=== PATIENT | female | born 1995 | race Caucasian/White ===

== ENCOUNTER 2022-07-07 12:59 | Emergency (ER) | payer MEDICAID ==
[~2022-07-07] VITALS: Ht 157.5 cm; Wt 66.3 kg
[2022-07-07 13:08] VITALS: BP 109/58
--- NOTE | 2022-07-07 13:24 | NUR ---
PT AMBULATED TO ER BED 6
--- NOTE | 2022-07-07 13:56 | NUR ---
LAB AT BEDSIDE.
[2022-07-07 14:20] LABS: APPEARANCE,URINE SL CLOUDY (CLEAR); BILIRUBIN,URINE NEGATIVE (NEGATIVE); BLOOD, URINE NEGATIVE (NEGATIVE); COLOR,URINE YELLOW (YELLOW); LEUKOCYTE ESTERASE ,URINE 2+ (NEGATIVE); NITRITE, URINE NEGATIVE (NEGATIVE); PH,URINE 6.5 (5.0-9.0); UGLUCOSE NEGATIVE (NEGATIVE)
[2022-07-07 14:26] LABS: BASOPHILS # (AUTO) 0.1 K/uL (0.00-0.22); EOSINOPHILS # (AUTO) 0.1 K/uL (0-0.4); EOSINOPHILS % (AUTO) 0.7 % (0.0-4.0); HEMATOCRIT 33.8 % (36-48); HEMOGLOBIN 11.5 g/dL (12.0-16.0); LYMPHOCYTES # (AUTO) 1.4 K/uL (2.5-16.5); LYMPHOCYTES % (AUTO) 14.9 % (20.5-51.1); MEAN CORPUSCULAR HEMOGLOBIN 30 pg (27-31); MEAN CORPUSCULAR HGB CONC 34 g/dL (33-37); MEAN CORPUSCULAR VOLUME 87.9 fL (80-94); MONOCYTES # (AUTO) 0.4 K/uL (0.8-1.0); MONOCYTES % (AUTO) 4.6 % (1.7-9.3); NEUTROPHILS # (AUTO) 7.3 K/uL (1.8-7.7); NEUTROPHILS % (AUTO) 78.8 % (42.2-75.2); PLATELET COUNT (AUTO) 218 K/uL (140-450); RED BLOOD CELL COUNT(AUTO) 3.84 MIL/uL (4.20-5.40); WHITE BLOOD COUNT (AUTO) 9.3 K/uL (4.8-10.8)
[2022-07-07 14:40] LABS: ALBUMIN 3.2 g/dL (3.4-5.0); CREATININE 0.4 mg/dL (0.6-1.3); TOTAL BILIRUBIN 0.2 mg/dL (0.0-1.0)
--- NOTE | 2022-07-07 14:40 | NUR ---
DR. COBIAN EVALUATING PATIENT AT BEDSIDE.
[2022-07-07 14:44] LABS: CALCIUM OXALATE CRYSTALS,UR 0-10 /HPF (None Seen); RBC,URINE 0-5 /HPF (0-5)
[2022-07-07 14:45] LABS: OTHER CASTS, URINE None Seen /LPF (None Seen)
[2022-07-07] MEDS ORDERED: cephALEXin 500 MG CAP PO ONE (15:10)
--- NOTE | 2022-07-07 16:12 | NUR ---
ULTRASOUND AT BEDSIDE.
--- NOTE | 2022-07-07 16:50 | NUR ---
26 y/o female c/o fainting at work. Patient does not remember incident, all she remembers is her vision getting fuzzy. Per witnesses, they said she did not hit her head but went slowly to the ground. Patient is currently . A&OX4, SKIN INTACT, VITALS WNL, AND STEADY GAIT. Medical History: Denies NKA
[2022-07-07] MEDS ORDERED: CEPH-588 PO (17:34)
[2022-07-07 17:50] VITALS: BP 103/60
--- NOTE | 2022-07-07 17:50 | NUR ---
Patient discharged with v/s stable. Written and verbal after care instructions given. Patient alert, oriented and verbalized understanding of instructions. Ambulatory with steady gait. All questions addressed prior to discharge. ID band removed. Patient advised to follow up with PMD. Rx of KEFLEX given. Opportunity to ask questions provided and answered. WORK NOTE HANDED TO PATIENT.
--- NOTE | 2022-07-07 17:51 | NUR ---
The patient's care was reviewed and supervised by Viviane Schulte RN.
== END 2022-07-07 17:50 | disposition home or self-care (01) ==
LOC: MED 12:59
DX: O26.892 Other specified pregnancy related conditions, second trimester (principal); Z3A.16 16 weeks gestation of pregnancy
CPT/HCPCS: 36415; 76805; 80053; 81001; 85025; 87086; 93005; 99285; Q0092

== ENCOUNTER 2022-09-21 22:40 | Emergency (ER) | payer MEDICAID ==
[~2022-09-21] VITALS: Ht 157.5 cm; Wt 68.5 kg
[~2022-09-21 22:40] MED LIST: CEPH-588 PO
[2022-09-21 23:03] VITALS: BP 100/57
--- NOTE | 2022-09-21 23:03 | NUR ---
to bed ambulatory
[2022-09-22] MEDS ORDERED: HYDROcodone/APAP 5/325 MG 1 TAB TAB PO ONE (00:45)
[2022-09-22] MEDS ORDERED: ALBUTEROL 0.083% 2.5 MG/3 ML NEBU INH ONE (00:45)
[2022-09-22 01:00] LABS: APPEARANCE,URINE SL CLOUDY (CLEAR); BILIRUBIN,URINE NEGATIVE (NEGATIVE); BLOOD, URINE TRACE-I (NEGATIVE); COLOR,URINE YELLOW (YELLOW); LEUKOCYTE ESTERASE ,URINE 3+ (NEGATIVE); NITRITE, URINE NEGATIVE (NEGATIVE); UGLUCOSE NEGATIVE (NEGATIVE)
--- NOTE | 2022-09-22 01:06 | NUR ---
SWABBED SENT TO LAB AND RECEIVED BY OSWALDO LUMBER PILER OPERATOR
[2022-09-22 01:19] LABS: RBC,URINE 0-5 /HPF (0-5); WBC,URINE 60-80 /HPF (0-5)
[2022-09-22 01:52] LABS: RSV POSITIVE (NEGATIVE)
[2022-09-22] MEDS ORDERED: ACET-8386 PO (02:18)
[2022-09-22] MEDS ORDERED: NITR100C7 PO (02:18)
[2022-09-22] MEDS ORDERED: LORA10TA19 PO (02:20)
[2022-09-22 02:30] VITALS: BP 100/57
--- NOTE | 2022-09-22 02:30 | NUR ---
Patient discharged. Written and verbal after care instructions given and explained. Patient alert, oriented and verbalized understanding of instructions. Ambulatory with steady gait. All questions addressed prior to discharge. ID band removed. Patient advised to follow up with PMD. Rx of Hydrocodon-Acetaminophen 5-325, macrobid, and claritin given. Patient educated on indication of medication including possible reaction and side effects. Opportunity to ask questions provided and answered.
== END 2022-09-22 02:30 | disposition home or self-care (01) ==
LOC: MED 22:40
DX: O99.512 Diseases of the respiratory system complicating pregnancy, second trimester (principal); J06.9 Acute upper respiratory infection, unspecified; B97.4 Respiratory syncytial virus as the cause of diseases classified elsewhere; O23.42 Unspecified infection of urinary tract in pregnancy, second trimester; Z20.822 Contact with and (suspected) exposure to COVID-19; Z3A.25 25 weeks gestation of pregnancy; Z98.890 Other specified postprocedural states; Z79.899 Other long term (current) drug therapy; Z79.891 Long term (current) use of opiate analgesic; Z79.2 Long term (current) use of antibiotics
CPT/HCPCS: 81001; 87086; 87420; 87426; 87804; 94640; 99284; J7613

== ENCOUNTER 2023-07-25 18:50 | Emergency (ER) | payer MEDICAID ==
[~2023-07-25] VITALS: Ht 162.6 cm; Wt 72.6 kg
[~2023-07-25 18:50] MED LIST changes: +ACET-8905 PO; +LORA10TA19 PO; +NITR100C7 PO
[2023-07-25 19:09] VITALS: BP 126/70; PULSE 78; RESP 18; TEMP 97.8; O2SAT 98
[2023-07-25] MEDS ORDERED: KETOROLAC 60 MG/2 ML VIAL IM ONE (21:05)
[2023-07-25] MEDS ORDERED: PSEU120T22 PO (21:20)
[2023-07-25] MEDS ORDERED: IBUP-2213 PO (21:20)
== END 2023-07-25 21:42 | disposition home or self-care (01) ==
LOC: MED 18:50
DX: R51.9 Headache, unspecified (principal); R42 Dizziness and giddiness; Z79.899 Other long term (current) drug therapy; Z98.890 Other specified postprocedural states
CPT/HCPCS: 81002; 81025; 96372; 99283; J1885